=== PATIENT | male | born 1985 | race Two or more races ===

== ENCOUNTER 2020-05-13 07:09 | Day surgery (SDC) | payer OTHER ==
[~2020-05-13] VITALS: Ht 172.7 cm; Wt 99.8 kg
[2020-05-13] VITALS (17 sets, daily range): BP systolic 108–157; BP diastolic 65–98
[~2020-05-13 07:09] MED LIST: Acetaminophen (Non formulary) 100 ML IV ONE; Albuterol/Ipratropium 3ml neb HHN PRN; Atropine Sulfate 0.4mg/ml inj IVP PRN; Chloraseptic Spray 20mL Bottle ORAL PRN; DiphenhydrAMINE 50mg/ml Inj IVP PRN; HYDROcodone/Acetamin 10/325 tab ORAL PRN; HYDROcodone/Acetamin 5/325 tab ORAL PRN; HYDROcodone/Acetamin 7.5/325 tab ORAL PRN; HYDROmorphone 1mg/ml Carpuject SUBQ PRN; Hydromorphone 0.5mg/0.5ml inj IVP PRN; Hydromorphone 0.5mg/0.5ml inj SUBQ PRN; Ketamine 500mg/10ml vial ONE; Ketorolac 30mg Inj IV PRN; LORazepam Inj 2mg/ml 1ml IV PRN; LR 1000ml 1,000 ML IVLG SCH; Lidocaine 1% MPF 10mg/ml 5ml ONE; Meperidine 25mg/1ml Inj (FOR RIGORS ONLY) IV PRN; Metoclopramide 10mg/2ml Inj IVP PRN; Midazolam 2mg/2ml Inj IVP PRN; Rocuronium Bromide 50mg/5ml Inj IV ONE; Sodium Chloride 10ml vial INJ ONE; ceFAZolin sod 1 GM in NS 55 ML IVPB ONE; fentaNYL 100 mcg/2 mL IV ONE; fentaNYL 100 mcg/2 mL IV PRN; oxyCODONE HCL/Acetaminophen 5/325mg ORAL PRN
--- NOTE | 2020-05-13 08:29 | Anethesia Preoperative Eval ---
Anesthesia Pre-op PMH/ROS General Date of Evaluation: May 13, 2020 Time of Evaluation: 09:11 Anesthesiologist: Consuelo ASA Score: ASA 2 Mallampati Score Class I : Soft palate, uvula, fauces, pillars visible Class II: Soft palate, uvula, fauces visible Class III: Soft palate, base of uvula visible Class IV: Only hard plate visible Mallampati Classification: Class II Surgeon: Tamanna Diagnosis: Neck Pain Surgical Procedure: ACDF C5-6, C6-7 Anesthesia History: none Family History: no anesthesia problems Allergies: Coded Allergies: No Known Allergies (Unverified , 05/13/20) Medications: see eMAR Patient NPO?: Yes Past Medical History Cardiovascular: Reports: HTN Other: obesity - BMI 36 Anesthesia Pre-op Phys. Exam Physician Exam Last Vital Signs Date Time Temp Pulse Resp B/P (MAP) Pulse Ox O2 Delivery O2 Flow Rate FiO2 05/13/20 08:15 Room Air 05/13/20 07:51 97.6 86 20 157/98 (117) 98 Constitutional: NAD Neurologic: CN 2-12 intact Cardiovascular: RRR Respiratory: CTA Gastrointestinal: S/NT/ND Airway Exam Mallampati Score: Class II MO: full ROM: limited Teeth: missing, intact Anesthesia Pre-op A/P Risk Assessment & Plan Assessment: ASA 2 Plan: GA, SED, GlideScope Status Change Before Surgery: No Pre-Antibiotics Dru Grams Ancef IV Given Within 1 Hr of Incision: Yes Time Given: 09:31 Edmar Cordero MD May 13, 2020 08:29
--- NOTE | 2020-05-13 08:30 | Immediate Post-Op Evaluation ---
Immediate Post-Op Evalulation Immediate Post-Op Evalulation Procedure: ACDF C5-6, C6-7 Date of Evaluation: May 13, 2020 Time of Evaluation: 13:13 IV Fluids: 1000 LR Blood Products: 0 Estimated Blood Loss: 50 Urinary Output: 0 Blood Pressure Systolic: 116 Blood Pressure Diastolic: 70 Pulse Rate: 88 Respiratory Rate: 16 O2 Sat by Pulse Oximetry: 94 Temperature (Fahrenheit): 97.1 Pain Score (1-10): 2 Nausea: No Vomiting: No Complications 0 Patient Status: awake, reacts, patent, extubated, none Hydration Status: adequate Dru Grams Ancef IV Given Within 1 Hr of Incision: Yes Time Given: 09:31 Edmar Cordero MD May 13, 2020 08:30
[2020-05-13] MEDS ORDERED: Gelfoam Size TOPIC ONE (08:34)
[2020-05-13] MEDS ORDERED: Bupivacaine 0.5% Inj 30 ml vial INJ ONE (08:34)
[2020-05-13] MEDS ORDERED: Thrombin 5000 units TOPIC ONE (08:34)
[2020-05-13] MEDS ORDERED: Lidocaine 1% Plain 30 ml INJ ONE ×3 (08:34→10:51)
[2020-05-13] MEDS ORDERED: Bacitracin 50000 Units Vial ONE (08:35)
[2020-05-13] MEDS ORDERED: Glycopyrrolate 0.2mg/ml 1ml Vial ONE (08:46)
[2020-05-13] MEDS ORDERED: Neostigmine 1mg/ml 10ml Inj ONE (08:46)
[2020-05-13] MEDS ORDERED: LR 1000ml ONE (09:00)
[2020-05-13] MEDS ORDERED: Sterile Water Irrig 1000ml IRRIG ONE (09:00)
[2020-05-13] MEDS ORDERED: NS Irrig 1000ml ONE (09:00)
[2020-05-13] MEDS ORDERED: propofoL 1,000mg/100ml IV ONE (09:00)
--- NOTE | 2020-05-13 09:28 | Pre-Procedure Note/Attestation ---
Pre-Procedure Note/Attestation Complete Prior to Procedure Planned Procedure: not applicable Procedure Narrative: ACDF C5-C6, C6-C7 anterior plate Indications for Procedure Pre-Operative Diagnosis: Cervical HNP radiculopathy Attestation I attest that I discussed the nature of the procedure; its benefits; risks and complications; and alternatives (and the risks and benefits of such alterna tives), prior to the procedure, with the patient (or the patient's legal commercial representative). I attest that, if there was a reasonable possibility of needing a blood transfusion, the patient (or the patient's legal commercial representative) was given the [facility] standardized written summary, pursuant to the Rodger Brandie Blood Safety Act ([place] Health and Safety Code # 1645, as amended). I attest that I re-evaluated the patient just prior to the surgery and that there has been no change in the patient's H&P, except as documented below: Roshan Nolen MD May 13, 2020 09:28
[2020-05-13] MEDS ORDERED: fentaNYL 100 mcg/2 mL IV ONE ×2 (09:51→12:29)
--- NOTE | 2020-05-13 12:32 | Brief Operative Note ---
Immediate Post Operative Note Operative Note Pre-op Diagnosis: Cervical HNP radiculopathy Procedure: ADF C5-C6, C6-C7 plate Post-op Diagnosis: same as pre-op Findings: consistent w/pre-op dx studies Surgeon: Amanda LITTLEJOHN Numerical Control Lathe Operator: Akilah LIANG Anesthesiologist: Consuelo LITTLEJOHN Anesthesia: general Specimen: yes Complications: none Condition: stable Fluids: anesthesia Estimated Blood Loss: minimal Drains: none Implant(s) used?: Yes Roshan Nolen MD May 13, 2020 12:32
[2020-05-13] MEDS ORDERED: Naloxone 0.4mg/ml Inj IVP PRN (12:45)
--- NOTE | 2020-05-13 13:50 | Diagnostic Imaging Report ---
XRAY C Spine 2-3v CLINICAL HISTORY: Neck pain. COMPARISON: None FINDINGS: Fluoroscopy independent procedure performed for cervical fusion. 31 seconds of fluoroscopy time utilized by the ordering physician. Total cumulative dose is 5.6 mGy and 0.0572 Gy.cm2. Total of 5 spot images are obtained . IMPRESSION: FLUOROSCOPY GUIDED PROCEDURE.
--- NOTE | 2020-05-13 14:38 | NUR ---
NURSE NOTES: patient transferred to room 407-1 s/p C5-6, C6-7 ACDF. patient in bed. A&Ox4, feeling groggy from pain medication at OR. verbally responsive. no respiratory distress on room air. surgical dressing on anterior neck. intact. no bleeding noted. on ice pack. IV on RAC running D5 1/2ns@ 125/hr. SCD for DVT PPX. active gag reflex. able to drink water. patient has not voided yet. urinal at bed side. bed in the lowest position and locked. call light within reach. checked and counted belongings with patient.
[2020-05-13] MEDS ORDERED: D5 1/2NS 1,000 ML IV SCH (15:47)
[2020-05-13] MEDS ORDERED: ceFAZolin sod 1 GM in D5W 55 ML IV SCH (17:30)
--- NOTE | 2020-05-13 18:19 | NUR ---
NURSE NOTES: patient voided and able to walk around room. steady gait. no dizziness noted.
--- NOTE | 2020-05-13 18:52 | NUR ---
NURSE NOTES: patient was discharged to [facility] with stable condition. A&Ox4, no respiratory distress noted on room air. no pain on surgery site now. patient ambulates steady gait. voided. present gag reflex. patient was tolerated clear diet without any problems. Patient can have regular food after discharge. Patient spoke to Dr. Brasher for discharge plan and f/u appointment, pain medication. Patient performed IS and nursed encourage patient using IS after discharge. Provided dc packet. checked and counted belongings with patient. signed on document. removed IV and ID. given extra gauze and tapes for dressing change. CHARLI Mullen took patient to the lobby. patient left hospital safely.
--- NOTE | 2020-05-14 06:07 | Pain Management Progress Note ---
Allergies: Coded Allergies: No Known Allergies (Unverified , 05/13/20) Vitals within normal limits Intake and Output 05/13/20 05/14/20 19:00 07:00 Intake Total 2320 ml Output Total 50 ml Balance 2270 ml Intake Oral 960 ml IV Total 1360 ml Output Estimated Blood Loss 50 ml # Voids 1 Medications Plan: I spent over 45 minutes in multiple additional telephone calls on the afternoon after surgery on May 13, 2020. I spent over 20 minutes in a one-on-one telephone call directly with the patient in the afternoon, to assess & prepare the patient for hospital discharge. I had detailed telephone calls separately with the spine surgeon Dr Nolen, the hospital floor nurse Cristobal Yeboah, and hospital floor charge-nurse Krystle. Pt's pain level is 2-4 / 10 on the visual-analog pain scale. Primarily a sore throat. Pt is breathing, swallowing, and phonating adequately, without distress. MAR medication list reviewed with the RN. Clear liquid diet tolerated without emesis. Discussed discharge planning with RNs & surgeon to help expedite hospital discharge. Patient has [place] pain meds at the hotel already, provided from the surgeon pre- operatively. The patient has already ambulated, and voided urine; the plan is for the patient to discharge from the hospital before 6pm on May 13, 2020, with a followup appt scheduled with Dr. Nolen ~ May 26, 2020. dJ Brasher MD May 14, 2020 06:07
[2020-05-14 08:50] VITALS: BP 118/72
--- NOTE | 2020-05-14 08:50 | 48 Hour Post Anesthesia Eval ---
Post Anesthesia Evaluation Procedure: ACDF C5-6, C6-7 Date of Evaluation: May 13, 2020 Time of Evaluation: 15:10 Blood Pressure Systolic: 118 0: 72 Pulse Rate: 86 Respiratory Rate: 15 Temperature (Fahrenheit): 97.8 O2 Sat by Pulse Oximetry: 98 Airway: patent Nausea: No Vomiting: No Pain Intensity: 1 Hydration Status: adequate Cardiopulmonary Status: stable Mental Status/LOC: patient returned to baseline Follow-up Care/Observations: n/a Post-Anesthesia Complications: none Follow-up care needed: N/A Ean Desir MD May 14, 2020 08:50
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
--- NOTE | 2020-05-17 05:14 | Operative Note - Dictated ---
DATE OF OPERATION: 05/13/2020 ADMITTING/PREOPERATIVE DIAGNOSIS: Posttraumatic cervical neck pain with radiculopathy/neurologic deficit C5-C6, C6-C7. OPERATIVE PROCEDURES: 1. Anterior cervical diskectomy with interbody reconstruction/fusion C5-C6, C6-C7 with anterior internal plate fixation. 2. Increased surgical intervention secondary to the patient's body habitus greater than 95th percentile for height. SURGEON: Roshan Nolen, PhD. . LOCK UP WORKER: GARTH Botello. ANESTHESIOLOGIST: Edmar Cordero M.D. ANESTHESIA: General with intubation. ESTIMATED BLOOD LOSS: Minimal. COMPLICATIONS: None. POSTOP CONDITION: Good/stable. PROCEDURE IN DETAIL: The patient was brought to the operating room and in the supine position, general anesthesia with intubation was induced. IV antibiotics, IV intravenous Decadron were administered 30 minutes prior to incision time. After the anterior neck was sterilely prepped, a spinal needle without penetration of dermis/epidermis was taped to the lateral aspect of the anterior lateral aspect of the neck and a cross-table image was obtained demonstrating the correct level for incision placement. Level was marked left lateral with sterile marking pen. This was after the needle was removed. Anterior cervical spine was re-sterilely prepped and draped free in its usual sterile fashion. Transverse incision appropriate for the involved intervals were sharply placed to dermis and epidermis. Electrocautery dissection was carried through the subcutaneous tissue to the level of the platysmas muscle flap. The muscle was isolated, identified, and transected in line with the incision. Minimal venous bleeding was controlled with bipolar electrocauterization. Dissection was carried medial to the left sternocleidomastoid muscle to the midline-medial to the left carotid sheath. Midline was identified between the right and left longus colli muscles. A needle bent at 90-degree angle so as to avoid penetration greater than 3 mm into the disk space was placed under high-power magnification. A cross-table image was obtained under sterile conditions, interpreted by surgeon for appropriate further dissection. Level was marked. Needle removed. Longus colli muscles were carefully reapproached and elevated subperiosteally not exceeding 3 mm medial or lateral. C6-C7: Interval was identified. Smooth retractors placed right lateral so as to avoid complications with the vertebral artery. Annulotomy was performed C6-C7. Under high-powered magnification with microscopic utilization, dissection was carried to the posterior longitudinal ligament with a right lateral /annular defect noted. Distraction 14 mm pins were placed. Distraction applied. SSEP monitoring stable at all times. Negative EMG's. The dissection was maintained with resection of the cartilaginous endplates. Midas Bill bur dissection utilized for resection of posterior osteophytes. Annulotomy performed posteriorly with resection of posterior longitudinal ligament. Disk noted right-anterior to the spinal cord/exiting nerve root. Disk material noted to be scarred to the anterior dura. Decompression undertaken. Foraminotomy. No dural tears or leaks noted anytime during the procedure. Appropriate trials were utilized for determination of interbody titanium graft interpositional grafting. Graft was utilized under sterile conditions, packed with BIO-4 augmented with local autograft. The graft was tamped into position. Of note is that all grafting determination of size and placement was with stops in place to avoid penetration greater than the anterior aspect of the cord C7 vertebral bodies. Bilateral radiograph was obtained interpreted by surgeon demonstrated excellent positioning of the anterior interbody graft. Pins were removed. Bleeding bone was cauterized with application of sterile wax. Wound was irrigated with antibiotic-containing saline. Retractors were placed at the C5-C6 interval. Anterior annulotomy performed with resection of anterior osteophyte. Diskectomy with resection of cartilaginous endplates. Midas Bill bur dissection carried through the posterior longitudinal ligament. Posterior longitudinal ligament resected with high-power magnification. SSEP monitoring/EMG is maintained normally throughout the procedure. Diskectomy performed with disc fragments noted posterior to the posterior longitudinal ligament. No dural tears or leaks noted anytime during the procedure. Appropriate graft dimensions determined with trial utilization with a trials to maintain the graft not posterior to the anterior cortices of the vertebral bodies. Appropriate titanium graft obtained packed with BIO-4 material. Tamped into position under high-power magnification. Countersinking not greater than 1 mm posterior to the anterior vertebral body Cortices as designed with implantation device. The patient is stable. The pins were then placed at C5-C6 were removed followed with application of sterile wax to bleeding bone. All traction on the neck (10 pounds) removed. Cross-table imaging was obtained demonstrating correct alignment of C5-C6 as well as C6-C7. Anterior internal plate fixation was undertaken C5-C6-C7 with bilateral cortical cancellous screw fixation in a compressive fashion. Plate/screw placement asymmetry to accommodate vascular anatomy. AP lateral fluoroscopic images obtained under sterile conditions, interpreted by surgeon with excellent placement position. Wound was irrigated with antibiotic-containing saline. Exploration revealed no obvious excoriation or laceration of vital structures. SSEP monitoring/EMG monitoring normal. Reapproximation was undertaken with absorbable suture of the platysmas muscle. Subcuticular reapproximation of dermis and epidermis. Surgical strips applied. Sterile bandage applied. Bandage maintained in place with tape. The patient was awakened and extubated in the operating room, and transported to the postoperative recovery in good stable condition. Roshan Nolen M.D. DR: ISABELA JOB#: [id number] CC:
== END 2020-05-13 18:50 | disposition home or self-care (01) ==
LOC: SUR 07:09 → 4E 14:15 → SUR 18:50
DX: M54.12 Radiculopathy, cervical region (principal); E66.9 Obesity, unspecified; M54.2 Cervicalgia; Z68.33 Body mass index [BMI] 33.0-33.9, adult
CPT/HCPCS: 20930; 20936; 22554; 22585; 72040; 76000; 94003; C1713; J0131; J0690; J1100; J2001; J2250; J2405; J2704; J2710; J3010; J3490; J7030; J7120; 94150